=== PATIENT | male | born 1960 | race Hispanic/Latino ===

== ENCOUNTER 2018-02-14 18:41 | Emergency (ER) | payer OTHER ==
[~2018-02-14] VITALS: Ht 160 cm; Wt 62.0 kg
[2018-02-14 20:01] LABS: HEMATOCRIT 36.4 % (39.0-50.0); HEMOGLOBIN 12.4 g/dl (14.0-18.0); IMMATURE GRANULOCYTES 0.4 % (0.0-5.0); MEAN CELL VOLUME 87.1 fL CALC (80.0-100.0); MEAN CORPUSCULAR HGB 29.7 pG CALC (26.0-32.0); MEAN CORPUSCULAR HGB CONC 34.1 g/L CALC (32.0-36.0); NEUT# 7.03 thou/uL (1.82-7.42); RED BLOOD COUNT 4.18 mill/uL (4.70-6.10); RED CELL DISTRI WIDTH 12.1 % (11.5-15.5)
[2018-02-14 20:14] LABS: ALBUMIN 3.9 g/dL (3.2-5.0); ALKALINE PHOSPHATASE 117 u/l (38-126); ANION GAP 18 (6-22 (CALC)); BILIRUBIN, TOTAL 0.4 mg/dL (0.0-1.4); BUN 18 mg/dL (9-20); BUN/CREATININE RATIO 36 (12-20 (CALC)); CARBON DIOXIDE 24 mmol/l (22-30); CHLORIDE 99 mmol/l (95-108); CREATININE 0.5 mg/dL (0.7-1.3); GFR > 60 ML/MIN (>=60 (CALC)); GFR FOR AFR.AMER. > 60 ML/MIN (>=60 (CALC)); POTASSIUM 4.4 mmol/l (3.5-5.1); SGOT/AST 16 u/l (17-59); SGPT/ALT 23 u/l (21-72); SODIUM 137 mmol/l (137-146); TOTAL PROTEIN 7.3 g/dL (6.3-8.2)
[2018-02-14] MEDS ORDERED: METFORMIN1000 MG PO (20:51)
[2018-02-14] MEDS ORDERED: LANTUS SOLOSTAR SC (20:52)
[2018-02-14 22:00] VITALS: BP 156/80
== END 2018-02-14 22:21 | DRG 603 ==
LOC: ED 18:41
DX: L03.012 Cellulitis of left finger (principal); L02.512 Cutaneous abscess of left hand; E11.9 Type 2 diabetes mellitus without complications

== ENCOUNTER 2022-01-12 18:01 | Emergency (ER) | payer OTHER ==
[~2022-01-12] VITALS: Ht 160 cm; Wt 69.1 kg
[~2022-01-12 18:01] MED LIST: LANTUS SOL100 UNIT/M SC; METFORMIN1000 MG PO
[2022-01-12] MEDS ORDERED: GENTAMICIN SULF5 ML OS (21:56)
[2022-01-12 22:20] VITALS: BP 154/76
[2022-01-13] MEDS ORDERED: GENTAMICIN SULF5 ML OS (11:31)
== END 2022-01-12 22:25 | disposition home or self-care (01) | DRG 125 ==
LOC: ED 18:01
DX: S05.02XA Injury of conjunctiva and corneal abrasion without foreign body, left eye, initial encounter (principal); H11.32 Conjunctival hemorrhage, left eye; E11.9 Type 2 diabetes mellitus without complications; W20.8XXA Other cause of strike by thrown, projected or falling object, initial encounter; Y93.H9 Activity, other involving exterior property and land maintenance, building and construction; Y92.89 Other specified places as the place of occurrence of the external cause; Y99.0 Civilian activity done for income or pay; Z79.4 Long term (current) use of insulin; Z79.84 Long term (current) use of oral hypoglycemic drugs

== ENCOUNTER 2022-01-20 15:14 | Inpatient (IN) | payer OTHER ==
[~2022-01-20] VITALS: Ht 160 cm; Wt 65.0 kg
[2022-01-20] VITALS (21 sets, daily range): BP systolic 94–154; BP diastolic 44–72
[~2022-01-20 15:14] MED LIST changes: +GENTAMICIN SULF5 ML OS
[2022-01-20 15:51] LABS: IMMATURE GRANULOCYTES 0.8 % (0.0-5.0); MEAN CELL VOLUME 88.4 fL CALC (80.0-100.0); MEAN CORPUSCULAR HGB CONC 33.9 g/dL CAL (32.0-36.0); NEUT# 18.23 thou/uL (1.82-7.42); RED BLOOD COUNT 3.27 mill/uL (4.70-6.10); RED CELL DISTRI WIDTH 12.6 % (11.5-15.5)
[2022-01-20 15:55] LABS: HEMATOCRIT 28.9 % (39.0-50.0); HEMOGLOBIN 9.8 g/dl (14.0-18.0)
[2022-01-20 16:03] LABS: URINE BILIRUBIN - DIPSTICK NEGATIVE (NEGATIVE); URINE BLOOD DIPSTICK SMALL (NEGATIVE); URINE COLOR YELLOW; URINE GLUCOSE - DIPSTICK >=1000 mg/dL (NEGATIVE); URINE KETONE TRACE mg/dL (NEGATIVE); URINE LEUK ESTERASE NEGATIVE (NEGATIVE); URINE PH 5.5 (4.5-8.0); URINE PROTEIN - DIPSTICK 100 mg/dL (NEG-TRACE); URINE SPECIFIC GRAVITY 1.025; URINE UROBILINOGEN - DIPSTICK 0.2 E.U./dL (0.2)
[2022-01-20 16:04] LABS: ALBUMIN 3.6 g/dL (3.2-5.0); BILIRUBIN, TOTAL 0.4 mg/dL (0.0-1.4); BUN 13 mg/dL (9-20); BUN/CREATININE RATIO 13 (12-20 (CALC)); CHLORIDE 98 mmol/l (95-108); GFR FOR AFR.AMER. > 60 ML/MIN (>=60 (CALC)); GFR OTHER RACES > 60 ML/MIN (>=60 (CALC)); POTASSIUM 4.5 mmol/l (3.5-5.1); TOTAL PROTEIN 7.3 g/dL (6.3-8.2)
[2022-01-20 16:08] LABS: ALKALINE PHOSPHATASE 179 u/l (38-126); ANION GAP 18 (6-22 (CALC)); CARBON DIOXIDE 19 mmol/l (22-30); SGOT/AST 44 u/l (17-59); SODIUM 130 mmol/l (137-146)
[2022-01-20 16:12] LABS: URINE NITRITE - DIPSTICK NEGATIVE (Negative)
[2022-01-20 16:22] LABS: URINE AMORPH SEDIMENT FEW hpf (NONE-FER); URINE SQUAMOUS EPITHELIAL CELL FEW EPI/hpf (0-FEW); URINE WBC 0-2 WBC/hpf (0-5)
[2022-01-20 20:34] LABS: HEMATOCRIT 23.3 % (39.0-50.0); IMMATURE GRANULOCYTES 0.7 % (0.0-5.0); MEAN CELL VOLUME 88.9 fL CALC (80.0-100.0); MEAN CORPUSCULAR HGB 29.8 pG CALC (26.0-32.0); MEAN CORPUSCULAR HGB CONC 33.5 g/dL CAL (32.0-36.0); NEUT# 16.47 thou/uL (1.82-7.42); RED BLOOD COUNT 2.62 mill/uL (4.70-6.10); RED CELL DISTRI WIDTH 12.6 % (11.5-15.5)
[2022-01-20 20:35] LABS: HEMOGLOBIN 7.8 g/dl (14.0-18.0)
[2022-01-20 20:45] LABS: INTERNATIONAL NORMALIZED RATIO 1.2 RATIO (0.7-1.3); PROTHROMBIN TIME 11.9 SECONDS (9.0-12.5)
[2022-01-21] VITALS (34 sets, daily range): BP systolic 99–149; BP diastolic 45–74
[2022-01-21 05:55] LABS: HEMATOCRIT 23.4 % (39.0-50.0); HEMOGLOBIN 7.9 g/dl (14.0-18.0); IMMATURE GRANULOCYTES 0.5 % (0.0-5.0); MEAN CORPUSCULAR HGB CONC 33.8 g/dL CAL (32.0-36.0); NEUT# 10.99 thou/uL (1.82-7.42); RED BLOOD COUNT 2.63 mill/uL (4.70-6.10); RED CELL DISTRI WIDTH 12.8 % (11.5-15.5)
[2022-01-21 06:13] LABS: ALKALINE PHOSPHATASE 115 u/l (38-126); BUN 11 mg/dL (9-20); BUN/CREATININE RATIO 13 (12-20 (CALC)); CARBON DIOXIDE 19 mmol/l (22-30); CREATININE 0.8 mg/dL (0.7-1.3); GFR FOR AFR.AMER. > 60 ML/MIN (>=60 (CALC)); GFR OTHER RACES > 60 ML/MIN (>=60 (CALC)); POTASSIUM 3.8 mmol/l (3.5-5.1); SGOT/AST 36 u/l (17-59)
[2022-01-21 06:34] LABS: ALBUMIN 2.6 g/dL (3.2-5.0); ANION GAP 10 (6-22 (CALC)); BILIRUBIN, TOTAL 0.2 mg/dL (0.0-1.4); CHLORIDE 118 mmol/l (95-108); SODIUM 143 mmol/l (137-146); TOTAL PROTEIN 5.7 g/dL (6.3-8.2)
[2022-01-21] MEDS ORDERED: PRESERVISION PO (10:42)
[2022-01-22] VITALS (25 sets, daily range): BP systolic 143–176; BP diastolic 67–90
[2022-01-22 05:38] LABS: HEMATOCRIT 24.7 % (39.0-50.0); HEMOGLOBIN 8.4 g/dl (14.0-18.0); MEAN CELL VOLUME 89.5 fL CALC (80.0-100.0); MEAN CORPUSCULAR HGB 30.4 pG CALC (26.0-32.0); RED BLOOD COUNT 2.76 mill/uL (4.70-6.10)
[2022-01-22 06:03] LABS: ALBUMIN 2.8 g/dL (3.2-5.0); ALKALINE PHOSPHATASE 115 u/l (38-126); ANION GAP 11 (6-22 (CALC)); BUN 12 mg/dL (9-20); BUN/CREATININE RATIO 15 (12-20 (CALC)); CARBON DIOXIDE 20 mmol/l (22-30); CHLORIDE 114 mmol/l (95-108); CREATININE 0.8 mg/dL (0.7-1.3); GFR FOR AFR.AMER. > 60 ML/MIN (>=60 (CALC)); GFR OTHER RACES > 60 ML/MIN (>=60 (CALC)); POTASSIUM 3.7 mmol/l (3.5-5.1); SODIUM 142 mmol/l (137-146); TOTAL PROTEIN 6.1 g/dL (6.3-8.2)
[2022-01-22 06:13] LABS: BILIRUBIN, TOTAL 0.1 mg/dL (0.0-1.4); SGOT/AST 70 u/l (17-59)
[2022-01-23] VITALS (52 sets, daily range): BP systolic 140–186; BP diastolic 68–164
[2022-01-23 05:40] LABS: HEMATOCRIT 24.9 % (39.0-50.0); HEMOGLOBIN 8.4 g/dl (14.0-18.0); MEAN CELL VOLUME 90.5 fL CALC (80.0-100.0); MEAN CORPUSCULAR HGB 30.5 pG CALC (26.0-32.0); MEAN CORPUSCULAR HGB CONC 33.7 g/dL CAL (32.0-36.0); RED BLOOD COUNT 2.75 mill/uL (4.70-6.10)
[2022-01-23 06:07] LABS: BUN 10 mg/dL (9-20); BUN/CREATININE RATIO 12 (12-20 (CALC)); CHLORIDE 110 mmol/l (95-108); CREATININE 0.8 mg/dL (0.7-1.3); GFR FOR AFR.AMER. > 60 ML/MIN (>=60 (CALC)); GFR OTHER RACES > 60 ML/MIN (>=60 (CALC)); MAGNESIUM 1.9 mg/dL (1.6-2.3); POTASSIUM 4.2 mmol/l (3.5-5.1); SODIUM 142 mmol/l (137-146)
[2022-01-23 06:27] LABS: ANION GAP 11 (6-22 (CALC)); CARBON DIOXIDE 25 mmol/l (22-30)
[2022-01-24] VITALS (23 sets, daily range): BP systolic 142–171; BP diastolic 53–88
[2022-01-24 05:10] LABS: HEMATOCRIT 24.4 % (39.0-50.0); HEMOGLOBIN 8.1 g/dl (14.0-18.0); MEAN CELL VOLUME 90.4 fL CALC (80.0-100.0); MEAN CORPUSCULAR HGB CONC 33.2 g/dL CAL (32.0-36.0); RED BLOOD COUNT 2.7 mill/uL (4.70-6.10); RED CELL DISTRI WIDTH 12.9 % (11.5-15.5)
[2022-01-24 05:28] LABS: ANION GAP 9 (6-22 (CALC)); BUN 11 mg/dL (9-20); BUN/CREATININE RATIO 12 (12-20 (CALC)); CARBON DIOXIDE 29 mmol/l (22-30); CHLORIDE 106 mmol/l (95-108); CREATININE 0.9 mg/dL (0.7-1.3); GFR FOR AFR.AMER. > 60 ML/MIN (>=60 (CALC)); GFR OTHER RACES > 60 ML/MIN (>=60 (CALC)); MAGNESIUM 1.8 mg/dL (1.6-2.3); POTASSIUM 3.8 mmol/l (3.5-5.1); SODIUM 140 mmol/l (137-146)
[2022-01-25 00:29] VITALS: BP 147/64
[2022-01-25 04:12] VITALS: BP 167/75
[2022-01-25 06:22] LABS: HEMATOCRIT 24.6 % (39.0-50.0); HEMOGLOBIN 8.2 g/dl (14.0-18.0); IMMATURE GRANULOCYTES 0.8 % (0.0-5.0); MEAN CELL VOLUME 90.4 fL CALC (80.0-100.0); MEAN CORPUSCULAR HGB 30.1 pG CALC (26.0-32.0); MEAN CORPUSCULAR HGB CONC 33.3 g/dL CAL (32.0-36.0); NEUT# 7.01 thou/uL (1.82-7.42); RED BLOOD COUNT 2.72 mill/uL (4.70-6.10); RED CELL DISTRI WIDTH 12.7 % (11.5-15.5)
[2022-01-25 06:44] LABS: ANION GAP 10 (6-22 (CALC)); BUN 10 mg/dL (9-20); BUN/CREATININE RATIO 11 (12-20 (CALC)); CARBON DIOXIDE 29 mmol/l (22-30); CHLORIDE 104 mmol/l (95-108); CREATININE 0.9 mg/dL (0.7-1.3); GFR FOR AFR.AMER. > 60 ML/MIN (>=60 (CALC)); GFR OTHER RACES > 60 ML/MIN (>=60 (CALC)); POTASSIUM 3.7 mmol/l (3.5-5.1); SODIUM 140 mmol/l (137-146)
[2022-01-25 07:21] VITALS: BP 156/72
[2022-01-25 11:04] VITALS: BP 142/61
[2022-01-25 15:00] VITALS: BP 168/68
[2022-01-25 19:13] VITALS: BP 160/71
[2022-01-26] VITALS (7 sets, daily range): BP systolic 139–163; BP diastolic 51–72
[2022-01-26 05:22] LABS: HEMATOCRIT 24.3 % (39.0-50.0); HEMOGLOBIN 8.2 g/dl (14.0-18.0); MEAN CORPUSCULAR HGB CONC 33.7 g/dL CAL (32.0-36.0); NEUT# 6.67 thou/uL (1.82-7.42); RED BLOOD COUNT 2.73 mill/uL (4.70-6.10); RED CELL DISTRI WIDTH 12.6 % (11.5-15.5)
[2022-01-26 05:40] LABS: ANION GAP 10 (6-22 (CALC)); BUN 11 mg/dL (9-20); BUN/CREATININE RATIO 13 (12-20 (CALC)); CARBON DIOXIDE 30 mmol/l (22-30); CHLORIDE 104 mmol/l (95-108); CREATININE 0.9 mg/dL (0.7-1.3); GFR FOR AFR.AMER. > 60 ML/MIN (>=60 (CALC)); GFR OTHER RACES > 60 ML/MIN (>=60 (CALC)); POTASSIUM 3.4 mmol/l (3.5-5.1); SODIUM 141 mmol/l (137-146)
[2022-01-27 01:14] VITALS: BP 144/58
[2022-01-27 05:12] VITALS: BP 150/64
[2022-01-27 06:25] VITALS: BP 159/71
[2022-01-27 10:26] VITALS: BP 144/58
[2022-01-27] MEDS ORDERED: NOVOLIN 70/30 SC (10:30)
[2022-01-27] MEDS ORDERED: AMOX/K CLAV875 M1 PO (10:30)
[2022-01-27] MEDS ORDERED: LISINOPRIL5 MG PO (10:30)
== END 2022-01-27 15:26 | disposition home or self-care (01) | DRG 853 ==
LOC: ED 15:14 → ED-I 15:42 → ED 15:42 → ED-I 17:00 → ED 17:30 → ICU 17:31 → MS2 17:31
PROVIDERS: Family Medicine; Internal Medicine; Surgery; ADMIT Internal Medicine; ATTEND Internal Medicine
PROC: 0Y6N0Z0 Detachment at Left Foot, Complete, Open Approach (ICD-10-PCS; principal; 2022-01-20)
PROC: 0Y6J0Z1 Detachment at Left Lower Leg, High, Open Approach (ICD-10-PCS; 2022-01-23)
DX: A41.9 Sepsis, unspecified organism (principal); A48.0 Gas gangrene; M72.6 Necrotizing fasciitis; E11.52 Type 2 diabetes mellitus with diabetic peripheral angiopathy with gangrene; L97.429 Non-pressure chronic ulcer of left heel and midfoot with unspecified severity; E87.2 Acidosis; E11.621 Type 2 diabetes mellitus with foot ulcer; B95.5 Unspecified streptococcus as the cause of diseases classified elsewhere; Z79.4 Long term (current) use of insulin; Z20.822 Contact with and (suspected) exposure to COVID-19; Z87.891 Personal history of nicotine dependence
CPT/HCPCS: J1650; J3370; S0164

== ENCOUNTER 2022-02-02 11:36 | Inpatient (IN) | payer OTHER ==
[2022-02-02] VITALS (15 sets, daily range): BP systolic 152–168; BP diastolic 68–81
[~2022-02-02] VITALS: Ht 160 cm; Wt 61.0 kg
[~2022-02-02 11:36] MED LIST changes: +AMOX/K CLAV875 M1 PO; +LISINOPRIL5 MG PO; +NOVOLIN 70/30 SC; +PRESERVISION PO
[2022-02-03] VITALS (12 sets, daily range): BP systolic 106–179; BP diastolic 58–86
[2022-02-03 05:30] LABS: HEMATOCRIT 27.1 % (39.0-50.0); HEMOGLOBIN 8.9 g/dl (14.0-18.0); MEAN CELL VOLUME 90.3 fL CALC (80.0-100.0); MEAN CORPUSCULAR HGB 29.7 pG CALC (26.0-32.0); MEAN CORPUSCULAR HGB CONC 32.8 g/dL CAL (32.0-36.0); RED CELL DISTRI WIDTH 13.2 % (11.5-15.5)
[2022-02-03 05:43] LABS: ANION GAP 13 (6-22 (CALC)); BUN 17 mg/dL (9-20); BUN/CREATININE RATIO 18 (12-20 (CALC)); CARBON DIOXIDE 25 mmol/l (22-30); CHLORIDE 103 mmol/l (95-108); CREATININE 0.9 mg/dL (0.7-1.3); GFR FOR AFR.AMER. > 60 ML/MIN (>=60 (CALC)); GFR OTHER RACES > 60 ML/MIN (>=60 (CALC)); SODIUM 137 mmol/l (137-146)
[2022-02-03 05:51] LABS: POTASSIUM 4.1 mmol/l (3.5-5.1)
[2022-02-04 00:17] VITALS: BP 145/62
[2022-02-04 04:21] VITALS: BP 146/69
[2022-02-04 06:38] VITALS: BP 157/50
[2022-02-04 11:09] VITALS: BP 141/48
[2022-02-04 19:28] VITALS: BP 152/66
[2022-02-04 22:25] VITALS: BP 126/55
[2022-02-05 05:15] VITALS: BP 156/77
[2022-02-05 06:27] LABS: HEMATOCRIT 26.9 % (39.0-50.0); HEMOGLOBIN 8.8 g/dl (14.0-18.0); MEAN CELL VOLUME 90.9 fL CALC (80.0-100.0); MEAN CORPUSCULAR HGB 29.7 pG CALC (26.0-32.0); MEAN CORPUSCULAR HGB CONC 32.7 g/dL CAL (32.0-36.0); RED BLOOD COUNT 2.96 mill/uL (4.70-6.10)
[2022-02-05 06:43] VITALS: BP 144/52
[2022-02-05 06:58] LABS: ANION GAP 14 (6-22 (CALC)); BUN 15 mg/dL (9-20); BUN/CREATININE RATIO 14 (12-20 (CALC)); CARBON DIOXIDE 25 mmol/l (22-30); CHLORIDE 103 mmol/l (95-108); GFR FOR AFR.AMER. > 60 ML/MIN (>=60 (CALC)); GFR OTHER RACES > 60 ML/MIN (>=60 (CALC)); MAGNESIUM 2.2 mg/dL (1.6-2.3); POTASSIUM 3.8 mmol/l (3.5-5.1); SODIUM 138 mmol/l (137-146)
[2022-02-05 10:46] VITALS: BP 140/42
[2022-02-05] MEDS ORDERED: PERCOCET 5/325M1 TAB PO (12:49)
== END 2022-02-05 15:10 | disposition home or self-care (01) | DRG 566 ==
LOC: ED 11:36 → ED-I 12:00 → ED 12:00 → MS2 12:05
PROVIDERS: ADMIT Internal Medicine; ATTEND Internal Medicine
PROC: 0HQLXZZ Repair Left Lower Leg Skin, External Approach (ICD-10-PCS; principal; 2022-02-03)
PROC: 3E0234Z Introduction of Serum, Toxoid and Vaccine into Muscle, Percutaneous Approach (ICD-10-PCS; 2022-02-04)
DX: T87.81 Dehiscence of amputation stump (principal); E11.9 Type 2 diabetes mellitus without complications; I10 Essential (primary) hypertension; Y83.5 Amputation of limb(s) as the cause of abnormal reaction of the patient, or of later complication, without mention of misadventure at the time of the procedure; Z23 Encounter for immunization; Z89.512 Acquired absence of left leg below knee; Z79.4 Long term (current) use of insulin; Z87.891 Personal history of nicotine dependence; Z20.822 Contact with and (suspected) exposure to COVID-19
CPT/HCPCS: J0131